=== PATIENT | female | born 1990 ===

== ENCOUNTER 2016-08-07 10:27 | Emergency (ER) | payer MEDICAID ==
[2016-08-07 10:28] VITALS: BMI 34.0
[2016-08-07 10:33] VITALS: TEMP 97.9
[2016-08-07 11:30] VITALS: BP 110/64; PULSE 82; RESP 17; O2SAT 100
--- NOTE | 2016-08-07 13:11 | C.PDOC ---
History Of Present Illness 25 y/o female presents to the ED with complains of rash to top left forehead and bilateral hands, mildly itchy. Pt denies history of same in the past. Denies new exposure to products or environmental allergens. Denies chest pain, SOB, change in vision, throat swelling or any other complaints. Time Seen by Provider: 08/07/16 10:44 Chief Complaint (Nursing): Allergic Reaction History Per: Patient History/Exam Limitations: no limitations Onset/Duration Of Symptoms: Hrs Current Symptoms Are (Timing): Still Present Possible Cause: Unknown Associated Symptoms: Skin Rash, Itching. denies: Swelling, Trouble Swallowing Home/EMS Treatment: None Severity: Mild Past Medical History Reviewed: Historical Data, Nursing Documentation, Vital Signs Vital Signs: Last Vital Signs Temp 97.9 F 08/07/16 11:30 Pulse 82 08/07/16 11:30 Resp 17 08/07/16 11:30 BP 110/64 08/07/16 11:30 Pulse Ox 100 08/07/16 13:14 - Medical History PMH: Anxiety, Migraine - [facility] Procedures INJECT/INFUSE ELECTROLYT (10/08/14) INJECT/INFUSE NEC (10/08/14) Family History: States: Unknown Family Hx - Social History Hx Tobacco Use: No Hx Alcohol Use: No Hx Substance Use: No - Immunization History Hx Tetanus Toxoid Vaccination: No Hx Influenza Vaccination: No Hx Pneumococcal Vaccination: No Review Of Systems Except As Marked, All Systems Reviewed And Found Negative. Constitutional: Negative for: Fever Eyes: Negative for: Vision Change ENT: Negative for: Throat Swelling Cardiovascular: Negative for: Chest Pain Respiratory: Negative for: Shortness of Breath Skin: Positive for: Rash Physical Exam - Physical Exam Appears: Non-toxic, No Acute Distress Skin: Warm, Dry, Rash (intermittent macular papular areas on left forehead above eye and to left hand) Head: Atraumatic, Normacephalic Ear(s): Bilateral: Normal Nose: Normal Oral Mucosa: Moist Throat: Normal, No Erythema Neck: Normal, Normal ROM, Supple Chest: Symmetrical Cardiovascular: Rhythm Regular, No Murmur Respiratory: Normal Breath Sounds, No Rales, No Rhonchi, No Wheezing Extremity: Bilateral: Atraumatic Neurological/Psych: Oriented x3, Normal Speech ED Course And Treatment O2 Sat by Pulse Oximetry: 100 (room air) Pulse Ox Interpretation: Normal Disposition - Disposition Referrals: [facility] Devendra Fierro, [Non-Staff] - Disposition: HOME/ ROUTINE Disposition Time: 10:45 Condition: GOOD Additional Instructions: Thank you for letting us take care of you today. Your provider was Dr. Peguero. You were treated for contact dermatitis. The emergency medical care you received today was directed at your acute symptoms. If you were prescribed any medication, please fill it and take as directed. It may take several days for your symptoms to resolve. Return to the Emergency Department if your symptoms worsen, do not improve, or if you have any other problems. Please contact your doctor or call one of the physicians/clinics you have been referred to that are listed on the Patient Visit Information form that is included in your discharge packet. Bring any paperwork you were given at discharge with you along with any medications you are taking to your follow up visit. Our treatment cannot replace ongoing medical care by a primary care provider (PCP) outside of the emergency department. Thank you for allowing the [facility] team to be part of your care today. Follow up with your doctor in 2-3 days for re-evaluation. Prescriptions: predniSONE [Prednisone] 40 mg PO DAILY #6 tab Instructions: Contact Dermatitis (ED) - Clinical Impression Clinical Impression: Contact dermatitis - Scribe Statement The provider has reviewed the documentation as recorded by the Maxim Gardner Provider Attestation: All medical record entries made by the Maxim were at my direction and personally dictated by me. I have reviewed the chart and agree that the record accurately reflects my personal performance of the history, physical exam, medical decision making, and the department course for this patient. I have also personally directed, reviewed, and agree with the discharge instructions and disposition.
== END 2016-08-07 11:29 | disposition home or self-care (01) ==
LOC: C.ER 10:27
DX: L25.9 Unspecified contact dermatitis, unspecified cause (principal)

== ENCOUNTER 2017-07-24 06:19 | Emergency (ER) | payer MEDICAID ==
[2017-07-24 06:19] VITALS: BMI 34.3
[2017-07-24 06:25] VITALS: BP 106/71; PULSE 91; RESP 22; TEMP 98.7; O2SAT 98
--- NOTE | 2017-07-24 06:33 | C.PDOC ---
History Of Present Illness 26yo female, currently 4 months , presents to ED with complaints of cough, sore throat and a subjective fever for the past 2 days. Patient states the symptoms have been worsening and she feels as if she has "a bad cold." Of note, patient's is in this ER being treated for similar complaints. She denies any abdominal pain, nausea, vomiting, chest pain, shortness of breath, vaginal bleeding or discharge. She has no other medical complaints. PMD: None provided Time Seen by Provider: 07/24/17 06:26 Chief Complaint (Nursing): Fever History Per: Patient History/Exam Limitations: no limitations Onset/Duration Of Symptoms: Days (2) Location Of Pain: Throat Sick Contacts (Context): Family Member(s) Associated Symptoms: Fever (tactile), Sore Throat, Cough. denies: Nausea, Vomiting, Diarrhea Past Medical History Vital Signs: Last Vital Signs Temp 98.7 F 07/24/17 06:24 Pulse 91 H 07/24/17 06:24 Resp 22 07/24/17 06:24 BP 106/71 07/24/17 06:24 Pulse Ox 98 07/24/17 06:34 - Medical History PMH: Anxiety, Migraine Denies: Diabetes, Hepatitis, HIV, HTN, Seizures, Sexually Transmitted Disease Surgical History: No Surg Hx - [facility] Procedures INJECT/INFUSE ELECTROLYT (10/08/14) INJECT/INFUSE NEC (10/08/14) Family History: States: No Known Family Hx, Unknown Family Hx - Social History Hx Tobacco Use: No Hx Alcohol Use: No Hx Substance Use: No - Immunization History Hx Tetanus Toxoid Vaccination: No Hx Influenza Vaccination: No Hx Pneumococcal Vaccination: No Review Of Systems Except As Marked, All Systems Reviewed And Found Negative. Constitutional: Positive for: Fever (tactile) ENT: Positive for: Throat Pain Respiratory: Positive for: Cough. Negative for: Shortness of Breath Gastrointestinal: Negative for: Nausea, Vomiting, Abdominal Pain Genitourinary: Negative for: Vaginal Discharge, Vaginal Bleeding Physical Exam - Physical Exam Appears: Non-toxic, No Acute Distress Skin: Normal Color, Warm, Dry Head: Atraumatic, Normacephalic Eye(s): bilateral: Normal Inspection Ear(s): Bilateral: Normal Nose: Normal Oral Mucosa: Moist Throat: Normal, Erythema (mild), No Exudate Neck: Normal ROM, Supple Chest: Symmetrical, No Tenderness Cardiovascular: Rhythm Regular Respiratory: Normal Breath Sounds, No Rales, No Rhonchi, No Wheezing Extremity: Normal ROM Neurological/Psych: Oriented x3 ED Course And Treatment O2 Sat by Pulse Oximetry: 98 (RA) Pulse Ox Interpretation: Normal Progress Note: Patient given first dose of Zithromax in ER. Instructed to take the rest of antibiotics as prescribed and to complete the entire course. Patient also informed to follow up with PMD in 2-3 days. CXR deferred as patient is currently . Stable for discharge home. Disposition - Disposition Disposition: HOME/ ROUTINE Disposition Time: 06:30 Condition: STABLE Additional Instructions: Follow up with PMD within 1-2 days. Return to ED if feel worse. Prescriptions: Fluticasone Nasal [Flonase] 1 spr NS BID #1 spr Acetaminophen [Tylenol 325mg tab] 2 tab PO Q6 #50 tab Azithromycin [Zithromax] 250 mg PO DAILY #4 tab Instructions: Bacterial Upper Respiratory Infection, Adult (DC) Forms: [employer] ([place]an) - Clinical Impression Clinical Impression: , URI (upper respiratory infection) - PA / PLASTIC JOINT MAKER / Resident Statement MD/DO has reviewed & agrees with the documentation as recorded. - Scribe Statement The provider has reviewed the documentation as recorded by the Scribe (Jazzmine Fraire) Provider Attestation: All medical record entries made by the Scribe were at my direction and personally dictated by me. I have reviewed the chart and agree that the record accurately reflects my personal performance of the history, physical exam, medical decision making, and the department course for this patient. I have also personally directed, reviewed, and agree with the discharge instructions and disposition.
== END 2017-07-24 06:44 | disposition home or self-care (01) ==
LOC: C.ER 06:19
DX: O26.90 Pregnancy related conditions, unspecified, unspecified trimester (principal); J06.9 Acute upper respiratory infection, unspecified; Z3A.00 Weeks of gestation of pregnancy not specified

== ENCOUNTER 2017-09-13 13:45 | Observation (INO) | payer MEDICAID ==
[2017-09-13 13:45] VITALS: BMI 34.3
[2017-09-13] MEDS ORDERED: Sodium Chloride 0.9% 1,000 ML IV ONE ×2 (14:55→16:04)
[2017-09-13] MEDS ORDERED: Sodium Chloride 0.9% 1,000 ML ONE ×2 (15:17→16:24)
[2017-09-13 15:21] LABS: BASO % 0.3 % (0.0-2.0); EOS % 0.5 % (0.0-4.0); HEMOGLOBIN 10.5 g/dL (11.0-16.0); LYMPH # 1.4 K/uL (1.0-4.3); LYMPH % 17.7 % (20.0-40.0); MEAN CELL VOLUME 84.3 fL (81.0-99.0); MEAN CORPUSCULAR HEMOGLOBIN 28.6 pg (27.0-31.0); MEAN CORPUSCULAR HGB CONC 33.9 g/dL (33.0-37.0); MEAN PLATELET VOLUME 7.2 fL (7.2-11.7); MONO # 0.5 K/uL (0.0-0.8); NEUT # 6.1 K/uL (1.8-7.0); NEUT % 75.5 % (50.0-75.0); RBC 3.68 Mil/uL (3.80-5.20); RED CELL DISTRIBUTION WIDTH 14.1 % (11.5-14.5); WHITE BLOOD COUNT 8.1 K/uL (4.8-10.8)
[2017-09-13 15:29] LABS: INR 1.2; PROTHROMBIN TIME 12.9 SECONDS (9.7-12.2)
[2017-09-13 15:42] LABS: HCG,QUALITATIVE URINE POSITIVE (NEGATIVE)
[2017-09-13 15:44] LABS: SQUAMOUS EPITHIAL 5 /hpf (0-5); URINE BILIRUBIN NEGATIVE (NEGATIVE); URINE BLOOD NEGATIVE (NEGATIVE); URINE CLARITY Hazy (Clear); URINE COLOR Yellow (YELLOW); URINE GLUCOSE (UA) NORMAL (Normal); URINE LEUKOCYTE ESTERASE NEG Leu/uL (Negative); URINE PROTEIN NEGATIVE (NEGATIVE)
--- NOTE | 2017-09-13 15:50 | C.PDOC ---
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 As per pt, ' was walking with my friend when fell dizzy and fell down". Pt was able to recall the entire episode. Pt sts, " my friend got me up and I came here". Pt still c/o dizziness, describes as lightheaded. Otherwise, pt denies head injury, , denies severe headache, vertigo, visual changes, focal deficits,m neck pain, CP, SOB, dyspnea, palpitation, diaphoresis , abd, pain, vaginal bleeding, back pain, peripheral edema, denies any complication during the current . Time Seen by Provider: 09/13/17 14:52 Chief Complaint (Nursing): Syncope History Per: Patient Past Medical History Reviewed: Historical Data, Nursing Documentation, Vital Signs Vital Signs: Last Vital Signs Temp 97.4 F L 09/14/17 00:00 Pulse 88 09/14/17 01:00 Resp 20 09/14/17 00:00 BP 111/71 09/14/17 00:00 Pulse Ox 96 09/14/17 00:00 - Medical History PMH: Anxiety, Migraine Denies: Diabetes, Hepatitis, HIV, HTN, Seizures, Sexually Transmitted Disease - [facility] Procedures INJECT/INFUSE ELECTROLYT (10/08/14) INJECT/INFUSE NEC (10/08/14) Family History: States: Unknown Family Hx - Social History Hx Tobacco Use: No Hx Alcohol Use: No Hx Substance Use: No - Immunization History Hx Tetanus Toxoid Vaccination: No Hx Influenza Vaccination: No Hx Pneumococcal Vaccination: No Review Of Systems Except As Marked, All Systems Reviewed And Found Negative. Constitutional: Negative for: Fever, Chills Eyes: Negative for: Vision Change ENT: Negative for: Throat Pain, Throat Swelling Cardiovascular: Negative for: Chest Pain, Palpitations, Edema, Light Headedness Respiratory: Negative for: Cough, Shortness of Breath, Wheezing Gastrointestinal: Negative for: Nausea, Vomiting, Abdominal Pain, Diarrhea Genitourinary: Negative for: Dysuria, Vaginal Bleeding Musculoskeletal: Negative for: Neck Pain, Back Pain Skin: Negative for: Bruising Neurological: Positive for: Altered Mental Status, Dizziness. Negative for: Weakness, Numbness, Headache Physical Exam - Physical Exam Appears: Well, Non-toxic, No Acute Distress Skin: Normal Color, Warm, Dry, No Rash Head: Atraumatic, Normacephalic Eye(s): bilateral: PERRL Ear(s): Bilateral: Normal Nose: No Flaring, No Discharge Oral Mucosa: Moist, No Drooling Tongue: Normal Appearing Lips: Normal Appearing Throat: No Drooling Neck: Normal ROM, Trachea Midline, Supple Cardiovascular: Rhythm Regular, No Murmur, No JVD, Other ((-) carotid bruits B/L ) Respiratory: No Decreased Breath Sounds, No Accessory Muscle Use, No Stridor, No Wheezing Gastrointestinal/Abdominal: No Tenderness, No Guarding, Other (Gravid) Back: No CVA Tenderness Extremity: Normal ROM, No Pedal Edema, No Deformity Neurological/Psych: Oriented x3, Normal Speech, Normal Cognition, Normal Motor, Normal Sensation, Normal Reflexes ED Course And Treatment - Laboratory Results Result Diagrams: 09/13/17 15:14 09/13/17 15:14 Lab Interpretation: No Acute Changes Urine POC: Positive ECG: Interpreted By Me, Viewed By Me ECG Rhythm: Sinus Rhythm Interpretation Of ECG: SR@89/min, NAD, no acute T wave or ST-T changes. O2 Sat by Pulse Oximetry: 99 Pulse Ox Interpretation: Normal Progress Note: FSBS 110. Orthostatic: Supine 109/66, 80, STanding 120/76, 94. Pt remained stable during the ED evaluation. Blood work review, appears normal without acute findings. Troponin - negative. EKG- normal study. Pt is afebrile , hemodynamicaly stable. Non-toxic, tolerate Po well in ED. PulseOx 99% RA. ENT: no acute findings. neck: Supple, (-) JVD, (-) caroti bruits B/L. Lungs: CTA B/L, BS equal B/L. CVS: (+)S1S2, reg, (-) murmur. Abd: Gravid. Back : (- ) CVA tenderness. No peripheral edema. case discussed with OB-on-call and transfer to OB floor arranged for further evaluation/ monitoring and admission as need. Case discussed with md-on-call and admission arrange dto telemetry with consult. Disposition - Disposition Disposition: HOSPITALIZED Disposition Time: 15:49 Condition: STABLE - Clinical Impression Clinical Impression: Syncope, , Dehydration
[2017-09-13 15:54] LABS: ALB/GLOB RATIO 1.1 (1.0-2.1); ALBUMIN 3.4 g/dL (3.5-5.0); ALT/SGPT 15 U/L (9-52); AST/SGOT 17 U/L (14-36); BLOOD UREA NITROGEN 4 mg/dL (7-17); CALCIUM 8.8 mg/dl (8.6-10.4); GFR AFRICAN-AMERICAN > 60; GFR NON-AFRICAN AMERICAN > 60
--- NOTE | 2017-09-13 20:41 | OBHP ---
Datetime: 09/13/2017 20:00 IP Adm Impression: , intrauterine IP Chief Complaint Other: Sent from ER for eval after patient presented with Hx of Syncopal e pisode earlier today IP Admit Plan: Observation/Evaluation Admit Comment, IP Provider: OB CONSULTATION 26 yo female and presently at about 25 weeks Per US at 24 weeks. Unknown LMP. Receives PNC at [facility] but started a couple weeks ago only Denies any complications related to her Breast Puller PNC records available and states that has not had a screening 50 gram glucola test yet No Obstetrical complaints elicited No significant Past Medical or Surgical History Able to comunicate well and denies any [place], BV or any other discomfort. Assessment reassuring, No contractions per monitor Obstetrically, pt in Stable and Satisfactory condition If patient is admitted, will order Heart Tones with Doppler Q shift, per L_D Nursing NST not really indicated at 25 weeks. Will request PNC records from [facility] in AM Advised to increase po water intake and to report any changes in movement, pelvic pain, leak ing of fluid or vaginal bleeding at any time. Thanks for consultation Pelvic Type - PN: Adequate Extremities - PN: Normal Abdomen - PN: Normal Back - PN: Normal Breast - PN: Not Done Lungs - PN: Normal Heart - PN: Normal Thyroid - PN: Normal Neurologic - PN: Normal HEENT - PN: Normal General - PN: Normal IP Fetus A Comments: Tracing reassuring for Gestational Age FHR - Baseline A Provider: 140 Membranes, Provider: Intact Contraction Comments Provider: None Comments, ACOG Physical Exam: Morbidly Obese Female FH c/w 28-30 weeks per size No abdominal pain or tenderness Pt denies any abdominal trauma since she did not fell on the floor Admits to adequate Movement Denies any contractions, leaking of fluid or vaginal bleding Denies smoking, alcohol, street drugs Presently without any dizziness or lighthedness Gestation - Est Wks by US: 25, per patient Vital Signs Provider: Reviewed; Within Normal Limits IP Chief Complaint: evaluation NICHD Variability Prov Fetus A: Moderate 6-25bpm NICHD Accel Fetus A IP Provider: [id number] NICHD Decel Fetus A IP Provider: None Genitourinary Exam: Normal DTRs - PN: Normal
--- NOTE | 2017-09-13 22:04 | CP.PCM.PN ---
Subjective - Date & Time of Evaluation Date of Evaluation: 09/13/17 Time of Evaluation: 21:30 - Subjective Subjective: H&P dictated #[id number] Objective - Vital Signs/Intake and Output Vital Signs (last 24 hours): Temp Pulse Resp BP Pulse Ox 98.5 F 86 16 100/64 97 09/13/17 21:29 09/13/17 21:29 09/13/17 21:29 09/13/17 21:29 09/13/17 21:29 - Labs Labs: 09/13/17 15:14 09/13/17 15:14 PT 12.9 SECONDS (9.7-12.2) H 09/13/17 15:14 INR 1.2 09/13/17 15:14 APTT 31 SECONDS (21-34) 09/13/17 15:14
[2017-09-13] MEDS: Dextrose 5%/0.9% NS 1,000 ML IV SCH (22:45)
[2017-09-14 07:27] LABS: BASO % 0.4 % (0.0-2.0); EOS # 0.1 K/uL (0.0-0.7); EOS % 1.2 % (0.0-4.0); HEMOGLOBIN 9.8 g/dL (11.0-16.0); LYMPH # 1.6 K/uL (1.0-4.3); LYMPH % 23.2 % (20.0-40.0); MEAN CELL VOLUME 84.4 fL (81.0-99.0); MEAN CORPUSCULAR HEMOGLOBIN 29.6 pg (27.0-31.0); MEAN CORPUSCULAR HGB CONC 35.1 g/dL (33.0-37.0); MEAN PLATELET VOLUME 7.4 fL (7.2-11.7); MONO # 0.5 K/uL (0.0-0.8); MONO % 7.3 % (0.0-10.0); NEUT # 4.7 K/uL (1.8-7.0); NEUT % 67.9 % (50.0-75.0); RBC 3.3 Mil/uL (3.80-5.20); RED CELL DISTRIBUTION WIDTH 14.2 % (11.5-14.5)
[2017-09-14] MEDS: Dextrose 5%/0.9% NS 1,000 ML IV SCH (08:20)
--- NOTE | 2017-09-14 08:25 | HP ---
CHIEF COMPLAINT: Dizziness with near syncope versus syncopal episode happened this afternoon. HISTORY OF PRESENT ILLNESS: Ms. Pascual is a 26-year-old female with no significant past medical history other than G8, P5, A1, M1 and 27 weeks' ; came into the ED after the patient has an episode of lightheadedness and syncope while she was walking outside. All the history obtained from the patient. She has been in her usual health until this afternoon while she was walking outside with her friend. She felt very dizzy, lightheaded, and she collapsed to the ground. She claims that her blood pressure was low. Denies any loss of consciousness. She claims that she has been aware of all the surrounding as she quickly regained consciousness. She denied any associated symptoms of headache, dizziness, palpitations, nausea, vomiting, or diaphoresis. Denies any other associated symptoms after that episode. She came to the emergency room for evaluation. In the emergency room, the patient was evaluated by SEMICONDUCTOR WAFERS SAW OPERATOR, underwent ultrasound and fetus was normal, and the patient was cleared by CHIEF STEWARD/STEWARDESS. As the patient was cleared by CHIEF STEWARD/STEWARDESS, the patient is being admitted to medical floor for further evaluation of her dizziness, syncope. In the ED, the patient received multiple fluid boluses. When I examined the patient, she is slightly feeling dizzy but much better than this morning. Denies any headache, dizziness. Denies any chest pain, shortness of breath, or wheezing. Denies any nausea, vomiting, abdominal pain, diarrhea, or constipation but claiming that she is feeling very weak. Denies any urinary complaints. Denies any leg pain or leg cramps. Denies any other neurologic symptoms. PAST MEDICAL HISTORY: Denies any past medical history. PAST SURGICAL HISTORY: Denies any past surgical history. FAMILY HISTORY: Nothing contributory to the present illness. Denies any family history of coronary artery disease. PERSONAL HISTORY: She is single; unemployed; having five children, delivered vaginally. SOCIAL HISTORY: Denies smoking, alcohol or drug abuse. ALLERGIES: NO KNOWN DRUG ALLERGIES. MEDICATIONS: Iron tablets, vitamins. REVIEW OF SYSTEMS: As described in history of present illness. PHYSICAL EXAMINATION: GENERAL: On examination, young female, lying in bed, in no acute distress. VITAL SIGNS: Blood pressure 112/75, pulse 91, respirations 20, temperature 97.8 degrees Fahrenheit, and O2 saturations 97% on room air. HEENT: Pupils equal, round, and reacting to light and accommodation. Extraocular muscles are intact. No icterus. No pallor. No oral thrush. No pharyngeal congestion. NECK: Supple. No JVD. No thyromegaly. CHEST: Moving equally bilaterally on respiration. LUNGS: Bilateral vesicular breath sounds. No wheezing. No rhonchi. CVS: S1 and S2 present, regular. ABDOMEN: Soft, nontender. Bowel sounds present. Uterus distended below the umbilicus. Bowel sounds present. No guarding. INTERNATIONAL LOGISTICS MANAGER: Alert, awake and oriented x3. No focal deficits noted. EXTREMITIES: No edema. Palpable peripheral pulses. LABORATORY DATA: Labs done from the ED, WBC 8.1, hemoglobin 10.5, hematocrit 31, platelets 280. PT 12.9, INR 1.2, and PTT 31. Sodium 138, potassium 3.6, chloride 107, bicarb 22, BUN 4, creatinine 0.4, glucose 100, calcium 8.8, AST 17, ALT 15, alkaline phosphatase 80, cardiac enzymes x1 negative. Albumin 3.4. Beta-hCG 12,280. UA: Specific gravity 1.020, pH 6, urobilinogen 2, otherwise, negative. EKG: Normal sinus rhythm as documented in ED note. ASSESSMENT: A young female who is 26 weeks' admitted for dizziness, status post lightheadedness or near syncopal episode this afternoon, evaluated by CHIEF STEWARD/STEWARDESS, cleared by CHIEF STEWARD/STEWARDESS for discharge. The patient is being admitted to the medical floor for further observation of her syncope. 1. Dizziness. 2. Near syncope versus syncope probably secondary to vasovagal, rule out other causes. 3. Second trimester gestation. PLAN: The patient is being admitted to cardiac telemetry. We will do serial cardiac enzymes, serial EKGs. We will check echocardiogram. We will check carotid Doppler. We will do neuro checks. We will obtain cardiology evaluation with Dr. Sánchez. Continue with iron and tablets. We will add further recommendation as her clinical course progresses. Lennie Cade MD
[2017-09-14 08:43] LABS: ALB/GLOB RATIO 0.9 (1.0-2.1); ALBUMIN 2.7 g/dL (3.5-5.0); ALT/SGPT 15 U/L (9-52); AST/SGOT 15 U/L (14-36); BLOOD UREA NITROGEN 3 mg/dL (7-17); CALCIUM 8.2 mg/dl (8.6-10.4); GFR AFRICAN-AMERICAN > 60; GFR NON-AFRICAN AMERICAN > 60; HDL CHOLESTEROL 43 mg/dL (30-70)
[2017-09-14 08:52] LABS: LDL CHOLESTEROL 107 mg/dL (0-129)
[2017-09-14] MEDS ORDERED: Sodium Chloride 0.9% 250 ML IV ONE (09:23)
--- NOTE | 2017-09-14 09:24 | CP.PCM.PN ---
Subjective - Date & Time of Evaluation Date of Evaluation: 09/14/17 Time of Evaluation: 09:23 - Subjective Subjective: Progress note dictated #[id number] Objective - Vital Signs/Intake and Output Vital Signs (last 24 hours): Temp Pulse Resp BP Pulse Ox 98.0 F 79 20 81/51 L 99 09/14/17 07:00 09/14/17 07:50 09/14/17 07:00 09/14/17 07:00 09/14/17 07:52 Intake and Output: 09/14/17 09/14/17 06:59 18:59 Intake Total 1000 Balance 1000 - Medications Medications: Current Medications Dextrose/Sodium Chloride (Dextrose 5%/0.9% Ns 1000 Ml) 1,000 mls @ 100 mls/hr IV .Q10H AMAYA Last Admin: 09/13/17 22:45 Dose: 100 mls/hr - Labs Labs: 09/14/17 07:12 09/14/17 07:12 PT 12.9 SECONDS (9.7-12.2) H 09/13/17 15:14 INR 1.2 09/13/17 15:14 APTT 31 SECONDS (21-34) 09/13/17 15:14
--- NOTE | 2017-09-14 09:46 | CP.PCM.CON ---
History of Present Illness - History of Present Illness History of Present Illness: Consultation for evaluation of syncope HPI: 26 year old female , 27 weeks had a near syncopal episode while she was walking with her friend. Review of Systems - Review of Systems Systems not reviewed;Unavailable: Acuity of Condition - Constitutional Constitutional: As Per HPI - EENT Eyes: As Per HPI Ears: As Per HPI Nose/Mouth/Throat: As Per HPI - Breasts Breasts: As Per HPI - Cardiovascular Cardiovascular: As Per HPI - Respiratory Respiratory: As Per HPI - Gastrointestinal Gastrointestinal: As Per HPI - Genitourinary Genitourinary: As Per HPI - Reproductive: Female Reproductive:Female: As Per HPI - Menstruation Menstruation: As Per HPI - Musculoskeletal Musculoskeletal: As Per HPI - Integumentary Integumentary: As Per HPI - Neurological Neurological: As Per HPI - Psychiatric Psychiatric: As Per HPI - Endocrine Endocrine: As Per HPI - Hematologic/Lymphatic Hematologic: As Per HPI Past Patient History - Infectious Disease Hx of Infectious Diseases: None - Past Social History Smoking Status: Never Smoked - CARDIAC Hx Hypertension: No - PULMONARY Hx Respiratory Disorders: No - NEUROLOGICAL Hx Migraine: Yes Hx Seizures: No - HEMATOLOGICAL/ONCOLOGICAL Hx Human Immunodeficiency Virus (HIV): No - GENITOURINARY/GYNECOLOGICAL Hx Sexually Transmitted Disorders: No - PSYCHIATRIC Hx Anxiety: Yes Hx Substance Use: No - SURGICAL HISTORY Hx Surgeries: No - ANESTHESIA Hx Anesthesia: No Hx Anesthesia Reactions: No Hx Malignant Hyperthermia: No Meds Allergies/Adverse Reactions: Allergies Allergy/AdvReac Type Severity Reaction Status Date / Time No Known Allergies Allergy Verified 09/13/17 13:55 - Medications Medications: Current Medications Dextrose/Sodium Chloride (Dextrose 5%/0.9% Ns 1000 Ml) 1,000 mls @ 100 mls/hr IV .Q10H AMAYA Last Admin: 09/13/17 22:45 Dose: 100 mls/hr Sodium Chloride (Sodium Chloride 0.9%) 250 mls @ 250 mls/hr IV .Q1H ONE Stop: 09/14/17 10:22 Physical Exam - Constitutional Appears: Well - Head Exam Head Exam: ATRAUMATIC, NORMAL INSPECTION, NORMOCEPHALIC - Eye Exam Eye Exam: EOMI, Normal appearance, PERRL Pupil Exam: NORMAL ACCOMODATION, PERRL - ENT Exam ENT Exam: Mucous Membranes Moist, Normal Exam - Neck Exam Neck exam: Positive for: Normal Inspection - Respiratory Exam Respiratory Exam: Clear to Auscultation Bilateral, NORMAL BREATHING PATTERN - Cardiovascular Exam Cardiovascular Exam: REGULAR RHYTHM - GI/Abdominal Exam GI & Abdominal Exam: Normal Bowel Sounds, Soft. absent: Tenderness - Extremities Exam Extremities exam: Positive for: normal inspection - Back Exam Back exam: NORMAL INSPECTION - Neurological Exam Neurological exam: Alert, CN II-XII Intact, Normal Gait, Oriented x3, Reflexes Normal - Psychiatric Exam Psychiatric exam: Normal Affect, Normal Mood - Skin Skin Exam: Dry, Intact, Normal Color, Warm Results - Vital Signs Recent Vital Signs: Last Vital Signs Temp 98.0 F 09/14/17 07:00 Pulse 79 09/14/17 07:50 Resp 20 09/14/17 07:00 BP 81/51 L 09/14/17 07:00 Pulse Ox 99 09/14/17 07:52 - Labs Result Diagrams: 09/14/17 07:12 09/14/17 07:12 Labs: Laboratory Results - last 24 hr 09/13/17 09/13/17 09/13/17 13:51 15:14 15:14 WBC 8.1 RBC 3.68 L Hgb 10.5 L Hct 31.0 L MCV 84.3 MCH 28.6 MCHC 33.9 RDW 14.1 Plt Count 280 MPV 7.2 Neut % (Auto) 75.5 H Lymph % (Auto) 17.7 L [place] % (Auto) 6.0 Eos % (Auto) 0.5 Baso % (Auto) 0.3 Neut # (Auto) 6.1 Lymph # (Auto) 1.4 [place] # (Auto) 0.5 Eos # (Auto) 0.0 Baso # (Auto) 0.0 PT 12.9 H INR 1.2 APTT 31 Sodium Potassium Chloride Carbon Dioxide Anion Gap BUN Creatinine Est GFR ( Amer) Est GFR (Non-Af Amer) POC Glucose (mg/dL) 100 Random Glucose Calcium Total Bilirubin AST ALT Alkaline Phosphatase Troponin I Total Protein Albumin Globulin Albumin/Globulin Ratio Triglycerides Cholesterol LDL Cholesterol Direct HDL Cholesterol Beta HCG, Quant Urine Color Urine Clarity Urine pH Ur Specific [place] Urine Protein Urine Glucose (UA) Urine Ketones Urine Blood Urine Nitrate Urine Bilirubin Urine Urobilinogen Ur Leukocyte Esterase Urine WBC (Auto) Urine RBC (Auto) Ur Squamous Epith Cells Urine HCG, Qual Blood Type Antibody Screen 09/13/17 09/13/17 09/13/17 15:14 15:14 15:35 WBC RBC Hgb Hct MCV MCH MCHC RDW Plt Count MPV Neut % (Auto) Lymph % (Auto) [place] % (Auto) Eos % (Auto) Baso % (Auto) Neut # (Auto) Lymph # (Auto) [place] # (Auto) Eos # (Auto) Baso # (Auto) PT INR APTT Sodium 138 Potassium 3.6 Chloride 107 Carbon Dioxide 22 Anion Gap 14 BUN 4 L Creatinine 0.4 L Est GFR ( Amer) > 60 Est GFR (Non-Af Amer) > 60 POC Glucose (mg/dL) Random Glucose 82 Calcium 8.8 Total Bilirubin 0.3 AST 17 ALT 15 Alkaline Phosphatase 80 Troponin I Total Protein 6.5 Albumin 3.4 L Globulin 3.1 Albumin/Globulin Ratio 1.1 Triglycerides Cholesterol LDL Cholesterol Direct HDL Cholesterol Beta HCG, Quant 31445.00 Urine Color Yellow Urine Clarity Hazy Urine pH 6.0 Ur Specific [place] 1.020 Urine Protein Negative Urine Glucose (UA) Normal Urine Ketones Trace Urine Blood Negative Urine Nitrate Negative Urine Bilirubin Negative Urine Urobilinogen 2.0 H Ur Leukocyte Esterase Neg Urine WBC (Auto) 3 Urine RBC (Auto) < 1 Ur Squamous Epith Cells 5 Urine HCG, Qual Positive Blood Type A POSITIVE Antibody Screen Negative 09/13/17 09/14/17 09/14/17 19:08 00:43 07:12 WBC 7.0 RBC 3.30 L Hgb 9.8 L Hct 27.9 L MCV 84.4 MCH 29.6 MCHC 35.1 RDW 14.2 Plt Count 244 MPV 7.4 Neut % (Auto) 67.9 Lymph % (Auto) 23.2 [place] % (Auto) 7.3 Eos % (Auto) 1.2 Baso % (Auto) 0.4 Neut # (Auto) 4.7 Lymph # (Auto) 1.6 [place] # (Auto) 0.5 Eos # (Auto) 0.1 Baso # (Auto) 0.0 PT INR APTT Sodium Potassium Chloride Carbon Dioxide Anion Gap BUN Creatinine Est GFR ( Amer) Est GFR (Non-Af Amer) POC Glucose (mg/dL) Random Glucose Calcium Total Bilirubin AST ALT Alkaline Phosphatase Troponin I < 0.0120 < 0.0120 Total Protein Albumin Globulin Albumin/Globulin Ratio Triglycerides Cholesterol LDL Cholesterol Direct HDL Cholesterol Beta HCG, Quant Urine Color Urine Clarity Urine pH Ur Specific [place] Urine Protein Urine Glucose (UA) Urine Ketones Urine Blood Urine Nitrate Urine Bilirubin Urine Urobilinogen Ur Leukocyte Esterase Urine WBC (Auto) Urine RBC (Auto) Ur Squamous Epith Cells Urine HCG, Qual Blood Type Antibody Screen 09/14/17 09/14/17 07:12 07:12 WBC RBC Hgb Hct MCV MCH MCHC RDW Plt Count MPV Neut % (Auto) Lymph % (Auto) [place] % (Auto) Eos % (Auto) Baso % (Auto) Neut # (Auto) Lymph # (Auto) [place] # (Auto) Eos # (Auto) Baso # (Auto) PT INR APTT Sodium 138 Potassium 3.6 Chloride 108 H Carbon Dioxide 20 L Anion Gap 13 BUN 3 L Creatinine 0.4 L Est GFR ( Amer) > 60 Est GFR (Non-Af Amer) > 60 POC Glucose (mg/dL) Random Glucose 84 Calcium 8.2 L Total Bilirubin 0.3 AST 15 ALT 15 Alkaline Phosphatase 64 Troponin I < 0.0120 Total Protein 5.7 L Albumin 2.7 L D Globulin 3.0 Albumin/Globulin Ratio 0.9 L Triglycerides 129 Cholesterol 184 LDL Cholesterol Direct 107 HDL Cholesterol 43 Beta HCG, Quant Urine Color Urine Clarity Urine pH Ur Specific [place] Urine Protein Urine Glucose (UA) Urine Ketones Urine Blood Urine Nitrate Urine Bilirubin Urine Urobilinogen Ur Leukocyte Esterase Urine WBC (Auto) Urine RBC (Auto) Ur Squamous Epith Cells Urine HCG, Qual Blood Type Antibody Screen Assessment & Plan (1) Syncope Assessment and Plan: etiology ? preload dependency echo telemetry Status: Acute (2) Dehydration Status: Acute
[2017-09-14] MEDS ORDERED: Calamine-Zinc Oxide Lotion (120 ml) TOP SCH (12:15)
--- NOTE | 2017-09-14 17:15 | CARD ---
APPROVED REPORT Date of service: 09/14/2017 EXAM: Two-dimensional and M-mode echocardiogram with Doppler and color Doppler. INDICATION Syncope 27 weeks 2D DIMENSIONS IVSd0.7 (0.7-1.1cm)LVDd4.6 (3.9-5.9cm) PWd0.9 (0.7-1.1cm)LVDs3.1 (2.5-4.0cm) FS (%) 32.6 %LVEF (%)61.0 (>50%) M-Mode DIMENSIONS Left Atrium (MM)3.82 (2.5-4.0cm)IVSd0.81 (0.7-1.1cm) Aortic Root2.99 (2.2-3.7cm)LVDd5.06 (4.0-5.6cm) Aortic Cusp Exc.2.18 (1.5-2.0cm)PWd0.68 (0.7-1.1cm) FS (%) 30 %LVDs3.52 (2.0-3.8cm) LVEF (%)57 (>50%) Mitral Valve MV E Kwmmiknn61.8cm/sMV A Zeqqoojx35.5cm/sE/A ratio1.7 TDI E/Lateral E'0.0E/Medial E'0.0 Tricuspid Valve TR Peak [id number]/sTR Peak [id number] LEFT VENTRICLE The left ventricle is normal size. There is normal left ventricular wall thickness. The left ventricular function is normal. The left ventricular ejection fraction is within the normal range. There is normal LV segmental wall motion. The left ventricular diastolic function is normal. RIGHT VENTRICLE The right ventricle is normal size. ATRIA The left atrium size is normal. The right atrium size is normal. AORTIC VALVE The aortic valve is normal in structure. MITRAL VALVE The mitral valve is normal in structure. TRICUSPID VALVE There is mild tricuspid regurgitation. <Conclusion> Normal LV systolic function. Normal chamber size. Mild TR.
--- NOTE | 2017-09-14 17:48 | CARD ---
APPROVED REPORT Date of service: 09/13/2017 EKG Measurement Heart [id number] <Conclusion> Normal sinus rhythm Normal ECG
[2017-09-14] MEDS: Calamine-Zinc Oxide Lotion (120 ml) TOP SCH (21:13)
--- NOTE | 2017-09-15 01:14 | PN ---
DATE: 09/14/2017 SUBJECTIVE: The patient was seen and examined at bedside. The patient is feeling slightly better than yesterday, but still complaining of dizziness upon getting up from bed. Her blood pressure was running low this morning. Given fluid bolus. Denies any other new complaints. All other systems reviewed and was found to be negative. PHYSICAL EXAMINATION: GENERAL: Young female, lying in bed, in no acute distress. VITAL SIGNS: Blood pressure 106/70, pulse 91, respirations 20, temperature 98 degree Fahrenheit, O2 sat is 98% on room air. HEENT: Pupils equal, round, and reacting to light and accommodation. Extraocular muscles intact. No icterus. No pallor. No oral thrush. No pharyngeal congestion. NECK: Supple. No JVD. LUNGS: Bilateral vesicular breath sounds. No wheezing. No rhonchi. CVS: S1 and S2 present and regular. ABDOMEN: Soft. Bowel sounds present. Uterus enlarged up to below the umbilicus. FOCUSER: Alert, awake, and oriented x3. No focal deficits noted. EXTREMITIES: No edema. Palpable peripheral pulses. MEDICATIONS: Include IV fluids, calamine lotion. LABORATORY DATA: From this morning, WBC 7, hemoglobin 9.8, hematocrit 27.9, platelets 244. Sodium 138, potassium 3.6, chloride 108, bicarb 20, BUN 3, creatinine 0.4, glucose 84, calcium 8.2. Total bilirubin 0.3, AST 15, ALT 15, alkaline phosphatase 64. Cardiac enzymes x3 negative. Total protein 5.7, albumin 2.7. Triglycerides 129, cholesterol 184, LDL 107, HDL 43. Urine culture, negative growth. Echocardiogram consistent with normal LV systolic function, normal chamber size, mild TR. Carotid Doppler, pending report. ASSESSMENT AND PLAN: Young female with second trimester gestation, admitted for dizziness, status post near syncopal episode, probably secondary to vasovagal, still hypotensive this morning. Improved her blood pressures after fluid boluses. We will continue with fluid at the current rate. Cardiology consult appreciated. Follow up with carotid Doppler results. If cleared by Cardiology and if hemodynamically stable, we will plan discharging the patient in a.m. Lennie Cade MD [facility] # [id number]
[2017-09-15] MEDS: Dextrose 5%/0.9% NS 1,000 ML IV SCH ×3 (02:50→14:27)
[2017-09-15] MEDS: Calamine-Zinc Oxide Lotion (120 ml) TOP SCH ×5 (04:00→17:13)
[2017-09-15 07:39] VITALS: RESP 20
--- NOTE | 2017-09-15 10:06 | CP.PCM.PN ---
Subjective - Date & Time of Evaluation Date of Evaluation: 09/15/17 Time of Evaluation: 10:06 - Subjective Subjective: Discharge summary dictated #[id number] Objective - Vital Signs/Intake and Output Vital Signs (last 24 hours): Temp Pulse Resp BP Pulse Ox 97.8 F 77 20 100/57 L 97 09/15/17 07:00 09/15/17 07:48 09/15/17 07:00 09/15/17 07:00 09/15/17 07:51 Intake and Output: 09/15/17 09/15/17 06:59 18:59 Intake Total 1200 Balance 1200 - Medications Medications: Current Medications Calamine (Calamine Lotion) 0 ml TOP Q4 AMAYA Last Admin: 09/15/17 04:00 Dose: Not Given Dextrose/Sodium Chloride (Dextrose 5%/0.9% Ns 1000 Ml) 1,000 mls @ 100 mls/hr IV .Q10H AMAYA Last Admin: 09/15/17 06:16 Dose: Not Given - Labs Labs: 09/14/17 07:12 09/14/17 07:12 PT 12.9 SECONDS (9.7-12.2) H 09/13/17 15:14 INR 1.2 09/13/17 15:14 APTT 31 SECONDS (21-34) 09/13/17 15:14
--- NOTE | 2017-09-15 11:07 | VASCLAB ---
Date of service: 09/14/2017 PROCEDURE: HISTORY: Syncope COMPARISON: None available. TECHNIQUE: Grayscale and duplex Doppler evaluation of the cervical carotid and vertebral arteries were performed. The common carotid, carotid bifurcations and cervical Internal Carotid Artery (ICA) and proximal External Carotid Artery (ECA) were evaluated. The vertebral arteries were evaluated for gross patency and flow direction. Report prepared by ROSALINDA Lopez FINDINGS: RIGHT CAROTID ARTERIES: 1. Common Carotid Artery: No significant focal plaque formation of the right common carotid artery. Maximum Peak Systolic velocity: 106 cm/sec: End-diastolic velocity 17 cm/sec. 2. Carotid Bifurcation: plaque formation. Maximum Peak Systolic velocity: 69 cm/sec: End-diastolic velocity 14 cm/sec. 3. Internal Carotid Artery: Plaque description: 3.1. Proximal Segment: Peak systolic velocity 82 cm/sec: End-diastolic velocity 25 cm/sec - % stenosis 0-15% 3.2. Middle Segment: Peak systolic velocity 72 cm/sec: End-diastolic velocity 29 cm/sec - % stenosis 0-15% 3.3. Distal Segment: Peak systolic velocity 78 cm/sec: End-diastolic velocity 45 cm/sec - % stenosis 0-15% 4. External Carotid Artery: No significant focal plaque formation. Peak systolic velocity 68 cm/sec 5. ICA/CCA Ratio: 0.8 LEFT CAROTID ARTERIES: 1. Common Carotid Artery: No significant focal plaque formation of the left common carotid artery. Maximum Peak Systolic velocity: 85 cm/sec: End-diastolic velocity 12 cm/sec. 2. Carotid Bifurcation: plaque formation. Maximum Peak Systolic velocity: 67 cm/sec: End-diastolic velocity 14 cm/sec. 3. Internal Carotid Artery: Plaque description: 3.1. Proximal Segment: Peak systolic velocity 79 cm/sec: End-diastolic velocity 20 cm/sec - % stenosis 0-15% 3.2. Middle Segment: Peak systolic velocity 67 cm/sec: End-diastolic velocity 22 cm/sec - % stenosis 0-15% 3.3. Distal Segment: Peak systolic velocity 59 cm/sec: End-diastolic velocity 19 cm/sec - % stenosis 0-15% 4. External Carotid Artery: No significant focal plaque formation. Peak systolic velocity 69 cm/sec 5. ICA/CCA Ratio: 1.0 VERTEBRAL ARTERIES: 1. Right Vertebral Artery: The right vertebral artery flow direction is antegrade. 2. Left Vertebral Artery: The left vertebral artery flow direction is antegrade. OTHER FINDINGS: 1. Right Brachial Blood pressure: 80 mmHg. 2. Left Brachial Blood pressure: 90 mmHg. IMPRESSION: RIGHT: Duplex scan does not suggest hemodynamically significant stenosis of the right extracranial carotid arteries. LEFT: Duplex scan does not suggest hemodynamically significant stenosis of the left extracranial carotid arteries.
[2017-09-15 11:09] LABS: BASO % 0.4 % (0.0-2.0); EOS # 0.1 K/uL (0.0-0.7); EOS % 1.1 % (0.0-4.0); HEMOGLOBIN 10.7 g/dL (11.0-16.0); LYMPH # 1.3 K/uL (1.0-4.3); LYMPH % 18.1 % (20.0-40.0); MEAN CELL VOLUME 84.6 fL (81.0-99.0); MEAN CORPUSCULAR HEMOGLOBIN 29.4 pg (27.0-31.0); MEAN CORPUSCULAR HGB CONC 34.8 g/dL (33.0-37.0); MEAN PLATELET VOLUME 7.2 fL (7.2-11.7); MONO # 0.4 K/uL (0.0-0.8); MONO % 5.9 % (0.0-10.0); NEUT # 5.4 K/uL (1.8-7.0); NEUT % 74.5 % (50.0-75.0); NRBC % 2.1 % (0.0-2.0); RBC 3.65 Mil/uL (3.80-5.20); RED CELL DISTRIBUTION WIDTH 14.4 % (11.5-14.5); WHITE BLOOD COUNT 7.2 K/uL (4.8-10.8)
[2017-09-15 11:33] LABS: ALBUMIN 3.2 g/dL (3.5-5.0); ALT/SGPT 18 U/L (9-52); AST/SGOT 12 U/L (14-36); BLOOD UREA NITROGEN 3 mg/dL (7-17); CALCIUM 8.5 mg/dl (8.6-10.4); GFR AFRICAN-AMERICAN > 60; GFR NON-AFRICAN AMERICAN > 60
--- NOTE | 2017-09-15 13:44 | CP.PCM.PN ---
Subjective - Date & Time of Evaluation Date of Evaluation: 09/15/17 Time of Evaluation: 13:35 - Subjective Subjective: PGY-[address] Sánchez. Ms Pascual is a 26 year old at 27 weeks who presented on 09/13 with an episode of syncope that occurred during a walk outside. Today she reports feeling much better and is asymptomatic. She reports no feelings of dizziness or lightheadedness. Pt denies any shortness of breath, chest pains, abdominal discomfort, dizziness. Objective - Vital Signs/Intake and Output Vital Signs (last 24 hours): Temp Pulse Resp BP Pulse Ox 97.8 F 79 20 100/57 L 97 09/15/17 07:00 09/15/17 12:00 09/15/17 07:00 09/15/17 07:00 09/15/17 12:00 Intake and Output: 09/15/17 09/15/17 06:59 18:59 Intake Total 1200 Balance 1200 - Medications Medications: Current Medications Calamine (Calamine Lotion) 0 ml TOP Q4 AMAYA Last Admin: 09/15/17 08:37 Dose: Not Given Dextrose/Sodium Chloride (Dextrose 5%/0.9% Ns 1000 Ml) 1,000 mls @ 100 mls/hr IV .Q10H AMAYA Last Admin: 09/15/17 06:16 Dose: Not Given - Labs Labs: 09/15/17 11:01 09/15/17 11:01 PT 12.9 SECONDS (9.7-12.2) H 09/13/17 15:14 INR 1.2 09/13/17 15:14 APTT 31 SECONDS (21-34) 09/13/17 15:14 - Constitutional Appears: Well, No Acute Distress - Head Exam Head Exam: ATRAUMATIC, NORMOCEPHALIC - Eye Exam Eye Exam: EOMI, Normal appearance, PERRL - ENT Exam ENT Exam: Mucous Membranes Moist, Normal Exam - Respiratory Exam Respiratory Exam: Clear to Ausculation Bilateral, NORMAL BREATHING PATTERN - Cardiovascular Exam Cardiovascular Exam: REGULAR RHYTHM - GI/Abdominal Exam Additional comments: Gravid Abdomen - Neurological Exam Neurological Exam: CN II-XII Intact - Skin Skin Exam: Intact, Normal Color, Warm Assessment and Plan (1) Syncope Assessment & Plan: Etiology most likely 2/2 dehydration and reduced blood flow from physiologic changes in EKG: Normal sinus rhythm Carotid Dopplers negative Echo: EF 66%, Mild TR Clinically shows no signs of syncope currently Patient advised to drink plenty of fluids Patient is cleared for discharge from a cardiac standpoint Status: Acute (2) Dehydration Assessment & Plan: Clinically improved Fluids: Dextrose 5%/.9%NS, 100mL/hr BPs 110s/70s-100s/50s Patient advised to maintain oral hydration Status: Acute
[2017-09-15 17:19] VITALS: TEMP 98; O2SAT 99
[2017-09-15 17:31] VITALS: BP 107/66; PULSE 84
--- NOTE | 2017-09-16 12:20 | DS ---
DISCHARGE DIAGNOSES: Dizziness, status post near syncope, dehydration, and 27 weeks gestation. HISTORY OF PRESENT ILLNESS: Ms. Pascual is a 26-year-old female with past medical history significant for G8, , M1 and 27 weeks' admitted with one episode of lightheadedness and near syncope while she was walking outside. The patient was found to be having low blood pressure and the patient is being admitted for further management after the patient is cleared by INSULATION NOZZLEMAN. This morning, the patient is feeling much better. Denies any headache or dizziness. Denies any chest pain, shortness of breath, or wheezing. Denies any nausea, vomiting, abdominal pain, diarrhea, or constipation. Denies any urinary complaints. Denies any leg pain or leg cramps. Denies any other neurologic symptoms. All other symptoms reviewed and were found to be negative. PHYSICAL EXAMINATION: GENERAL: Young female, lying in bed, in no acute distress. VITAL SIGNS: Blood pressure 107/66, pulse 84, respirations 20, temperature 98 degrees Fahrenheit, O2 saturation 99% on room air. HEENT: Pupils equal, round, and reacting to light and accommodation. Extraocular muscles intact. No icterus. No pallor. No oral thrush. No pharyngeal congestion. NECK: Supple. No JVD. LUNGS: Bilateral vesicular breath sounds. No wheezing. No rhonchi. CARDIOVASCULAR: S1 and S2 present, regular. ABDOMEN: Soft and nontender. Bowel sounds present. No guarding. No rigidity. No rebound tenderness noted. Uterus is distended below the umbilicus. RENDERING EQUIPMENT TENDER: Alert, awake, oriented x3. No focal deficits noted. EXTREMITIES: No edema. Palpable peripheral pulses. LABORATORY DATA: Labs from this morning: WBC 7.2, hemoglobin 10.7, hematocrit 30.8, and platelets 267. Sodium 138, potassium 3.8, chloride 108, bicarb 20, BUN 3, creatinine 0.4, glucose 88, and calcium 8.5. Total bilirubin 0.2, AST 12, ALT 18, and alkaline phosphatase 75, total protein 6.4, albumin 3.2, and globulin 3.2. HOSPITAL COURSE: The patient was admitted to the hospital after the patient was cleared by INSULATION NOZZLEMAN, after the patient had a near syncopal episode and dizziness. The patient was found to be having low blood pressures, so received multiple fluid boluses, had all the workup done for syncope. Carotid Doppler is negative. Echocardiogram within normal limits. The patient was evaluated by Cardiology. Cleared for discharge. The patient is also cleared by INSULATION NOZZLEMAN for discharge. The patient is otherwise feeling much better and hemodynamically stable. Blood pressure improved without any dizziness or any other symptoms, and the patient is anxious to be discharged. The patient is discharged. I advised the patient to follow up with PMD, follow up with KEY PUNCH OPERATOR. I advised her to return to ED if any symptoms recur. CONDITION UPON DISCHARGE: The patient is alert, awake, oriented x3, and hemodynamically stable at the time of discharge. DISCHARGE INSTRUCTIONS: Follow up with PMD. Follow up with KEY PUNCH OPERATOR. DISCHARGE DIET: Regular diet and recommended to increase p.o. fluid intake and advised to keep herself rehydrated all the time. Lennie Cade MD
== END 2017-09-15 18:10 | disposition home or self-care (01) ==
LOC: C.EROB 13:45 → C.ER 13:45 → C.5S 16:08 → C.9E 16:08 → EDLOC 16:08 → UNDOADMOB 16:08 → C.4LDOR 17:08 → C.9E 17:08 → C.ER 18:33 → C.4LDOR 19:36 → C.5S 21:55
PROVIDERS: ADMIT Internal Medicine; ATTEND Internal Medicine
DX: O99.412 Diseases of the circulatory system complicating pregnancy, second trimester (principal); O99.282 Endocrine, nutritional and metabolic diseases complicating pregnancy, second trimester; Z3A.27 27 weeks gestation of pregnancy; G43.909 Migraine, unspecified, not intractable, without status migrainosus; I95.9 Hypotension, unspecified; E66.01 Morbid (severe) obesity due to excess calories; E86.0 Dehydration; O99.212 Obesity complicating pregnancy, second trimester
CPT/HCPCS: 36415; 80053; 80061; 81001; 82948; 84484; 84702; 84703; 85025; 85610; 85730; 86850; 86900; 87086; 93005; 93306; 93880; 96360; 99285; G0378; J7030; J7042

== ENCOUNTER 2017-09-27 13:53 | Emergency (ER) | payer MEDICAID ==
[2017-09-27 14:05] VITALS: BMI 43.9
--- NOTE | 2017-09-27 14:21 | C.PDOC ---
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 As per pt, 'I was walking with him when felt dizzy and fell down". Pt was able to recall the entire episode. Pt sts, "he caught me and I came here". Pt still c/o dizziness, describes as lightheaded. Otherwise, pt denies head injury, severe headache, vertigo, visual changes, focal deficits, neck pain, CP, SOB, dyspnea, palpitation, diaphoresis, abd, pain, vaginal bleeding, back pain. Of note, pt was seen in [facility] earlier today to monitor growth of the baby, states everything is "normal." Time Seen by Provider: 09/27/17 14:16 Chief Complaint (Nursing): Syncope History Per: Patient History/Exam Limitations: no limitations Onset/Duration Of Symptoms: Days Current Symptoms Are (Timing): Still Present Past Medical History Reviewed: Historical Data, Nursing Documentation, Vital Signs Vital Signs: Last Vital Signs Temp 97.9 F 09/27/17 15:57 Pulse 88 09/27/17 15:57 Resp 18 09/27/17 15:57 BP 117/68 09/27/17 15:57 Pulse Ox 100 09/27/17 16:00 - Medical History PMH: Anxiety, Migraine - [facility] Procedures INJECT/INFUSE ELECTROLYT (10/08/14) INJECT/INFUSE NEC (10/08/14) Family History: States: No Known Family Hx - Social History Hx Tobacco Use: No Hx Alcohol Use: No Hx Substance Use: No - Immunization History Hx Tetanus Toxoid Vaccination: No Hx Influenza Vaccination: No Hx Pneumococcal Vaccination: No Review Of Systems Constitutional: Negative for: Fever, Chills Cardiovascular: Negative for: Chest Pain, Palpitations Respiratory: Negative for: Shortness of Breath Gastrointestinal: Negative for: Nausea, Vomiting Musculoskeletal: Negative for: Back Pain Skin: Negative for: Rash Neurological: Negative for: Weakness, Numbness, Headache, Dizziness Physical Exam - Physical Exam Appears: Non-toxic, No Acute Distress Skin: Normal Color, Warm, Dry, No Rash Head: Atraumatic, Normacephalic Eye(s): bilateral: Normal Inspection Nose: Normal Oral Mucosa: Moist Lips: Normal Appearing Neck: Normal ROM Chest: Symmetrical Cardiovascular: Rhythm Regular, No Murmur Respiratory: Normal Breath Sounds, No Accessory Muscle Use Gastrointestinal/Abdominal: Soft, No Tenderness, Other (Gravid) Extremity: Normal ROM, No Pedal Edema, No Deformity, No Swelling Neurological/Psych: Oriented x3, Normal Speech ED Course And Treatment - Laboratory Results Result Diagrams: 09/27/17 15:04 09/27/17 15:04 ECG: Interpreted By Me, Viewed By Me ECG Rhythm: Sinus Rhythm ECG Interpretation: No Acute Changes Rate From EC O2 Sat by Pulse Oximetry: 100 (RA) Pulse Ox Interpretation: Normal Medical Decision Making Medical Decision Making: Prior records reviewed: Patient was recently seen in ED on 09/13/17 for syncope and admitted for syncope, dehydration. During hospitalization patient observed for syncope and had cardiology and OB consult. Echo shows EF 66%, Mild TR. Patient clinically improved and discharged on 09/15 Plan: * Bloodwork * IVFs * UA Progress: All labs reviewed. H/H shows mild anemia. Potassium is low, oral potassium ordered. Patient remained afebrile alert and oriented with stable vital signs during ER evaluation. On re-examination, patient is resting comfortably in no acute distress. Patient reports improvement of symptoms. 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 Disposition Counseled Patient/Family Regarding: Diagnosis, Need For Followup - Disposition Disposition: HOME/ ROUTINE Disposition Time: 15:58 Condition: STABLE Instructions: Syncope (Fainting) Forms: [facility] (Ugandan) - POA Present On Arrival: None - Clinical Impression Clinical Impression: Syncope, - Scribe Statement The provider has reviewed the documentation as recorded by the Scribe (Santa Watkins) All medical record entries made by the Scribe were at my direction and personally dictated by me. I have reviewed the chart and agree that the record accurately reflects my personal performance of the history, physical exam, medical decision making, and the department course for this patient. I have also personally directed, reviewed, and agree with the discharge instructions and disposition.
[2017-09-27] MEDS ORDERED: Sodium Chloride 0.9% 1,000 ML ONE (14:53)
[2017-09-27] MEDS: Sodium Chloride 0.9% 1,000 ML IV ONE (14:56)
[2017-09-27 15:13] LABS: SQUAMOUS EPITHIAL 36 /hpf (0-5); URINE BACTERIA RARE (<OCC); URINE BILIRUBIN NEGATIVE (NEGATIVE); URINE BLOOD NEGATIVE (NEGATIVE); URINE CLARITY Hazy (Clear); URINE COLOR Amber (YELLOW); URINE GLUCOSE (UA) NORMAL (Normal); URINE LEUKOCYTE ESTERASE 2+ Leu/uL (Negative); URINE PROTEIN 1+ mg/dL (NEGATIVE)
[2017-09-27 15:18] LABS: BASO % 0.3 % (0.0-2.0); EOS # 0.1 K/uL (0.0-0.7); EOS % 0.9 % (0.0-4.0); HEMOGLOBIN 9.9 g/dL (11.0-16.0); LYMPH # 1.4 K/uL (1.0-4.3); LYMPH % 22.2 % (20.0-40.0); MEAN CELL VOLUME 82.7 fL (81.0-99.0); MEAN CORPUSCULAR HEMOGLOBIN 28.8 pg (27.0-31.0); MEAN CORPUSCULAR HGB CONC 34.9 g/dL (33.0-37.0); MEAN PLATELET VOLUME 7.4 fL (7.2-11.7); MONO # 0.4 K/uL (0.0-0.8); MONO % 6.8 % (0.0-10.0); NEUT # 4.4 K/uL (1.8-7.0); NEUT % 69.8 % (50.0-75.0); RBC 3.45 Mil/uL (3.80-5.20); RED CELL DISTRIBUTION WIDTH 14.3 % (11.5-14.5); WHITE BLOOD COUNT 6.4 K/uL (4.8-10.8)
[2017-09-27 15:22] LABS: ALBUMIN 3.1 g/dL (3.5-5.0); ALT/SGPT 19 U/L (9-52); AST/SGOT 14 U/L (14-36); BLOOD UREA NITROGEN 3 mg/dL (7-17); CALCIUM 8.4 mg/dl (8.6-10.4); GFR AFRICAN-AMERICAN > 60; GFR NON-AFRICAN AMERICAN > 60
[2017-09-27] MEDS: Potassium Chloride 20 mEq ER Tab PO STA (15:45)
[2017-09-27] MEDS ORDERED: Potassium Chloride 20 mEq ER Tab PO ONE (15:45)
[2017-09-27 15:58] VITALS: TEMP 97.9
--- NOTE | 2017-09-27 16:52 | OBHP ---
Datetime: 09/27/2017 16:44 IP Adm Impression: , intrauterine IP Admit Plan: Discharge home Admit Comment, IP Provider: 26 yo female @ 27 wks for syncopal epsides, second episode this prgancny. pt revuated 09/13 admissed by cardiolgy normal echo adn evluated. pt reprots today was walk ing wither her husbnad and felt dizzy and passed out, denies any head trauma, no defectation, no urin blayne incontinece. pt denies any abodminal trama, di dnot lose conscoiuness. pt deies any lof, vb, ctx, +Fm. Pt denies any fevers, chills, cp, sob, lightheadness, headache, blurry vsion, numbnes ro dissy ness. 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 FHX: non contribtory MEDS: iron, vitmain NKDA SHX: ngetiave etoh/tobacc/drugs @ 2 7wks with syncopal epside cleared by ER -NST -dc home -f/u OBGYN -precauitng given -obstertrically cleared -f/u o/p with pmd, cardiogly, adivsed can consdier neurology Pelvic Type - PN: Adequate Extremities - PN: Normal Abdomen - PN: Normal Back - PN: Normal Breast - PN: Not Done Lungs - PN: Normal Heart - PN: Normal Thyroid - PN: Not Done Neurologic - PN: Normal HEENT - PN: Normal General - PN: Normal FHR - Baseline A Provider: 125 Membranes, Provider: Intact Contraction Comments Provider: none Gestation - Est Wks by US: 27.0 EGA AdmitDate IP: 27.0 Vital Signs Provider: Reviewed; Within Normal Limits IP Chief Complaint: Other NICHD Variability Prov Fetus A: Moderate 6-25bpm FHR Category Provider Fetus A: Category I NICHD Decel Fetus A IP Provider: None Dilatation, Provider: 0 Genitourinary Exam: Normal DTRs - PN: Normal
[2017-09-27 22:09] VITALS: BP 104/75; PULSE 80; RESP 20; O2SAT 99
--- NOTE | 2017-09-28 14:21 | CARD ---
APPROVED REPORT Date of service: 09/27/2017 EKG Measurement Heart [id number] <Conclusion> Normal sinus rhythm Normal ECG
== END 2017-09-27 16:08 | disposition home or self-care (01) ==
LOC: C.EROB 13:53 → C.ER 13:53 → C.EROB 16:08
DX: O26.892 Other specified pregnancy related conditions, second trimester (principal); R55 Syncope and collapse; Z3A.27 27 weeks gestation of pregnancy
CPT/HCPCS: 80053; 81001; 84702; 85025; 93005; 96360; 99285; J7030

== ENCOUNTER 2017-11-25 11:57 | Inpatient (IN) | payer MEDICAID ==
[2017-11-25 12:33] VITALS: BMI 43.4
--- NOTE | 2017-11-25 12:33 | OBHP ---
Datetime: 11/25/2017 12:27 IP Adm Impression: Term, intrauterine IP Chief Complaint Other: cramping/diarrhea/vomiting Admit Comment, IP Provider: at 39+weels came with c/o cramping with diarrhea and vomiting,no c txs,vb , lof+fm. obhx 5 x ph de me pnv all nkda psh de soch de ve 2-3/50/-3 a/p at 39+weks in eaely labor/vomiting ivf cont julian and efm will rexamine Pelvic Type - PN: Adequate Extremities - PN: Normal Abdomen - PN: Normal Back - PN: Normal Breast - PN: Normal Lungs - PN: Normal Heart - PN: Normal Thyroid - PN: Normal Neurologic - PN: Normal HEENT - PN: Normal General - PN: Normal FHR - Baseline A Provider: 140 Contraction Comments Provider: occ Vital Signs Provider: Reviewed; Within Normal Limits NICHD Variability Prov Fetus A: Moderate 6-25bpm NICHD Accel Fetus A IP Provider: 15X15 FHR Category Provider Fetus A: Category I Dilatation, Provider: 2-3 Effacement, Provider: 70 Station, Provider: -2 Genitourinary Exam: Normal DTRs - PN: Normal Datetime: 11/04/2017 16:32 EGA AdmitDate IP: 35.5
[2017-11-25] MEDS: Lactated Ringer's 1,000 ML IV SCH ×3 (12:34→17:30)
[2017-11-25] MEDS ORDERED: Oxytocin 30 UNIT 30 UNITS/500 ML BAG IV ONE ×2 (13:15→14:44)
--- NOTE | 2017-11-25 13:19 | OBADHP ---
Datetime: 11/25/2017 12:27 IP Chief Complaint Other: cramping/diarrhea/vomiting Admit Comment, IP Provider: at 39+weels came with c/o cramping with diarrhea and vomiting,no c txs,vb , lof+fm. obhx 5 x ph de me pnv all nkda psh de soch de ve 2-3/50/-3 a/p at 39+weks in eaely labor/vomiting ivf cont julian and efm will rexamine pt c/o pain. plan admit to l_d npo/ivf labs pitocin anticipate Pelvic Type - PN: Adequate Extremities - PN: Normal Abdomen - PN: Normal Back - PN: Normal Breast - PN: Normal Lungs - PN: Normal Heart - PN: Normal Thyroid - PN: Normal Neurologic - PN: Normal HEENT - PN: Normal General - PN: Normal FHR - Baseline A Provider: 140 Contraction Comments Provider: occ IP Hx Assessment: The History has been Reviewed and is Current Vital Signs Provider: Reviewed; Within Normal Limits NICHD Variability Prov Fetus A: Moderate 6-25bpm NICHD Accel Fetus A IP Provider: 15X15 FHR Category Provider Fetus A: Category I Dilatation, Provider: 2-3 Effacement, Provider: 70 Station, Provider: -2 Genitourinary Exam: Normal DTRs - PN: Normal IP Adm Impression: Term, intrauterine IP Admit Plan: Admit to unit; Initiate labor induction protocol Datetime: 11/04/2017 16:32 Presentation-Admit: Vertex Comments, ACOG Physical Exam: Abdomen: Obese. Gravid. Soft. Fundal height 36 cm Extremities: +2 pitting edema in bilateral lower extremities Gestation - Est Wks by US: 35w 6d NICHD Decel Fetus A IP Provider: None EGA AdmitDate IP: 35.5
[2017-11-25 13:55] LABS: BASO % 0.2 % (0.0-2.0); EOS % 0.3 % (0.0-4.0); HEMOGLOBIN 10.4 g/dL (11.0-16.0); LYMPH # 1.3 K/uL (1.0-4.3); LYMPH % 16.4 % (20.0-40.0); MEAN CELL VOLUME 81.4 fL (81.0-99.0); MEAN CORPUSCULAR HEMOGLOBIN 27.2 pg (27.0-31.0); MEAN CORPUSCULAR HGB CONC 33.5 g/dL (33.0-37.0); MEAN PLATELET VOLUME 7.3 fL (7.2-11.7); MONO # 0.4 K/uL (0.0-0.8); MONO % 4.8 % (0.0-10.0); NEUT % 78.3 % (50.0-75.0); RBC 3.81 Mil/uL (3.80-5.20); RED CELL DISTRIBUTION WIDTH 16.2 % (11.5-14.5); WHITE BLOOD COUNT 7.7 K/uL (4.8-10.8)
[2017-11-25 14:07] LABS: ALBUMIN 3.4 g/dL (3.5-5.0); ALT/SGPT 12 U/L (9-52); AST/SGOT 16 U/L (14-36); BLOOD UREA NITROGEN 3 mg/dL (7-17); GFR NON-AFRICAN AMERICAN > 60
[2017-11-25] MEDS ORDERED: Bupivacaine HCl/FentaNYL Cit 100 ML EPI ONE ×2 (14:28→15:13)
[2017-11-25] MEDS ORDERED: Penicillin G 5 Million Unit Vial IVPB ONE (14:45)
[2017-11-25] MEDS ORDERED: Penicillin G Potassium 5 MU in Dextrose 5% In Water 50 ML IV ONE (15:49)
[2017-11-25 17:24] LABS: BARBITURATES, UR NEGATIVE (NEGATIVE); BENZODIAZEPINES, UR NEGATIVE (NEGATIVE); OPIATES, UR NEGATIVE (NEGATIVE); PHENCYCLIDINE, UR NEGATIVE (NEGATIVE)
[2017-11-25] MEDS: Penicillin G Potassium 2.5 MU in Dextrose 5% In Water 50 ML IV SCH ×2 (18:30→22:31)
[2017-11-25] MEDS ORDERED: Penicillin G Potassium 2.5 MU in Dextrose 5% In Water 50 ML IV SCH (20:00)
--- NOTE | 2017-11-25 20:26 | OBPN ---
Datetime: 11/25/2017 20:23 IP Procedures: Sterile Vag Exam FHR - Baseline A Provider: 140 IP Progress Note Comment: pt was examined at bed side ve /-3 cont piocin anticipate cont bhavin NICHD Accel Fetus A IP Provider: 15X15 FHR Category Provider Fetus A: Category I NICHD Variability Prov Fetus A: Moderate 6-25bpm Dilatation, Provider: 4 Effacement, Provider: 70 Station, Provider: -3 Datetime: 11/25/2017 12:27 Contraction Comments Provider: occ Vital Signs Provider: Reviewed; Within Normal Limits Datetime: 11/04/2017 16:32 Gestation - Est Wks by US: 35w 6d Presentation-Admit: Vertex NICHD Decel Fetus A IP Provider: None Datetime: 09/27/2017 16:44 Membranes, Provider: Intact Datetime: 09/14/2017 15:54 IP Progress Impression: Reassuring heart rate Datetime: 09/13/2017 20:00 IP Fetus A Comments: Tracing reassuring for Gestational Age
[2017-11-26] MEDS ORDERED: Bupivacaine HCl/FentaNYL Cit 100 ML EPI ONE ×2 (00:20→06:22)
[2017-11-26] MEDS: Penicillin G Potassium 2.5 MU in Dextrose 5% In Water 50 ML IV SCH ×2 (02:21→06:18)
--- NOTE | 2017-11-26 09:22 | OBPN ---
Datetime: 11/26/2017 09:04 IP Progress Impression: Normal progression of labor IP Informed Consent Obtain: Vaginal Delivery IP Procedures: Sterile Vag Exam IP Progress Plan: Continue present management Membranes, Provider: Ruptured Contraction Comments Provider: 2-3 mins FHR - Baseline A Provider: 145 IP Progress Note Comment: Pt a gran multiparous female with 5 's, 1 miscarriage and 1 TOP. G8. Pt complaining of pain and on a continuous epidural. Anesthesia notified SVE 9/100/0 station Suspect around 9 lbs baby + early deccels noted Hope for a prompt delivery NICHD Accel Fetus A IP Provider: 10X10 FHR Category Provider Fetus A: Category I NICHD Variability Prov Fetus A: Moderate 6-25bpm Dilatation, Provider: 9 Effacement, Provider: 100 Station, Provider: 0 NICHD Decel Fetus A IP Provider: Early
[2017-11-26] MEDS ORDERED: Oxycodone/Acetaminophen 5/325 mg Tab ONE ×2 (11:17→16:05)
[2017-11-26] MEDS ORDERED: Oxycodone/Acetaminophen 5/325 mg Tab PO PRN (11:21)
[2017-11-26] MEDS: Oxycodone/Acetaminophen 5/325 mg Tab PO PRN ×3 (11:39→21:27)
--- NOTE | 2017-11-26 11:42 | OBDS ---
DELIVERY PERSONNEL Delivery Doctor: Dr Maradiaga MATERNAL INFORMATION Delivery Anesthesia: Epidural Medications in Delivery: oxytocin Estimated Blood Loss (ml): 200 Placenta Cultured: Yes Maternal Complications: None Provider Comments: of viable male from FLOYD position and over an intact perineum. 9 _9, BW 7lbs, 7oz. LABOR SUMMARY EDC: 12/03/2017 00:00 No. Babies in Womb: 1 LABOR INFORMATION Reason for Induction: Not Applicable Onset of Labor: 11/25/2017 13:00 Complete Dilatation: 11/26/2017 10:00 Oxytocin: Augmentation Group B Beta Strep: Positive Antibiotics # of Doses: 4 Steroids Given: None Reason Steroids Not Administered: Not Applicable MEMBRANES Membranes Rupture Method: Artificial Rupture of Membranes: 11/26/2017 00:05 Length of Rupture (hrs): 10.10 Amniotic Fluid Color: Light Meconium Amniotic Fluid Amount: Moderate Amniotic Fluid Odor: None STAGES OF LABOR Stage 1 hrs: 21 Stage 1 min: 0 Stage 2 hrs: 0 Stage 2 min: 11 Stage 3 hrs: 0 Stage 3 min: 4 Total Time in Labor hrs: 21 Total Time in Labor min: 15 VAGINAL DELIVERY Episiotomy: None Laceration Extension: N/A Laceration Type: None Other Laceration: none Laceration Repair: Not Applicable Initial Vag Sponge Count: 10 Final Vag Sponge Count: 10 Sponge Count Correct: Yes Sharps Count Correct: N/A BABY A INFORMATION Infant Delivery Date/Time: 11/26/2017 10:11 Method of Delivery: Vaginal Born in Route : No : N/A Forceps: N/A Vacuum Extraction: N/A Shoulder Dystocia : No ASSISTED DELIVERY BABY A Vacuum/Forceps Comment: none SHOULDER DYSTOCIA BABY A Delivery of Head: 11/26/2017 10:11 Infant Delivery Date/Time: 11/26/2017 10:11 Time Head to Delivery : 0.0 Shoulder Dystocia Comments: n/a PRESENTATION/POSITION BABY A Presentation: Cephalic Cephalic Presentation: Vertex Vertex Position: Left Occipital Anterior Breech Presentation: N/A PLACENTA INFORMATION BABY A Placenta Delivery Time : 11/26/2017 10:15 Placenta Method of Delivery: Spontaneous Placenta Status: Delivered SCORES BABY A Heart Rate 1 min: >100 bpm Resp Effort 1 min: Good Cry Reflex Irritability 1 min: Cough or Sneeze or Pulls Away Muscle Tone 1 min: Active Motion Color 1 min: Body [place], Extremities Blue SCORE 1 MIN: 9 Heart Rate 5 min: >100 bpm Resp Effort 5 min: Good Cry Reflex Irritability 5 min: Cough or Sneeze or Pulls Away Muscle Tone 5 min: Active Motion Color 5 min: Body [place], Extremities Blue SCORE 5 MIN: 9 INFANT INFORMATION BABY A Gestational Age at Delivery: 39.0 Gestational Status: Term Infant Outcome : Liveborn Infant Condition : Stable Sex: Male IDENTIFICATION/MEDS BABY A ID Band Number: [id number] ID Band Location: Left Leg; Left Arm Sensor Applied: Yes Sensor Number: [id number] Sensor Location : Cord Clamp WEIGHT/LENGTH BABY A Infant Birthweight (gms): 3370 Weight (lb): 7 Infant Weight (oz): 7 Infant Length Inches: 19.00 Length cms: 48.3 CORD INFORMATION BABY A No. Cord Vessels: 3 Nuchal Cord : N/A Nuchal Cord Other: none Suction: Mouth
[2017-11-26 16:09] LABS: URINE BACTERIA OCC (<OCC); URINE BILIRUBIN NEGATIVE (NEGATIVE); URINE CLARITY Hazy (Clear); URINE COLOR Red (YELLOW); URINE GLUCOSE (UA) NORMAL (Normal); URINE LEUKOCYTE ESTERASE TRACE Leu/uL (Negative); URINE PROTEIN 2+ mg/dL (NEGATIVE); URINE UROBILINOGEN NORMAL mg/dL (0.2-1.0)
[2017-11-26 16:13] LABS: URINE BLOOD 3+ (NEGATIVE)
[2017-11-26 16:29] LABS: BARBITURATES, UR NEGATIVE (NEGATIVE); BENZODIAZEPINES, UR NEGATIVE (NEGATIVE); OPIATES, UR NEGATIVE (NEGATIVE); PHENCYCLIDINE, UR NEGATIVE (NEGATIVE)
[2017-11-27] MEDS: Oxycodone/Acetaminophen 5/325 mg Tab PO PRN ×3 (01:36→19:13)
[2017-11-27 08:43] LABS: BASO % 0.5 % (0.0-2.0); EOS # 0.1 K/uL (0.0-0.7); EOS % 1.4 % (0.0-4.0); HEMOGLOBIN 9.3 g/dL (11.0-16.0); LYMPH # 2.3 K/uL (1.0-4.3); LYMPH % 23.4 % (20.0-40.0); MEAN CELL VOLUME 81.2 fL (81.0-99.0); MEAN CORPUSCULAR HEMOGLOBIN 27.5 pg (27.0-31.0); MEAN CORPUSCULAR HGB CONC 33.8 g/dL (33.0-37.0); MEAN PLATELET VOLUME 7.3 fL (7.2-11.7); MONO # 0.5 K/uL (0.0-0.8); MONO % 4.9 % (0.0-10.0); NEUT # 6.7 K/uL (1.8-7.0); NEUT % 69.8 % (50.0-75.0); RBC 3.38 Mil/uL (3.80-5.20); RED CELL DISTRIBUTION WIDTH 16.1 % (11.5-14.5); WHITE BLOOD COUNT 9.7 K/uL (4.8-10.8)
[2017-11-27] MEDS: Multiple Vitamins Tab PO SCH (10:54)
--- NOTE | 2017-11-27 12:26 | OBPPN ---
Datetime: 11/27/2017 12:06 PP Pain Prov: Abnormal PP Pain Prov comment: Complains of uterine cramping pain not relieved with Percocet an PP Breasts Prov: Not Done PP Heart Prov: Normal PP Lungs Prov: Normal PP Abdomen/Uterus Prov: Normal PP Lochia Prov: Normal PP Vulva/Perineum Prov: Normal PP CVA Tenderness Prov: Normal PP Extremities Prov: Normal PP C/S Incision Prov: Not Applicable PP Progress Prov: Normal PP Comments Phys Exam Prov: Fundus firm, below umbilicus and non-tender on palpation but c/o's of se liliana cramping PP Impression Prov: Normal progression PP Plan Prov: Continue present management PP Progress Note Prov: PPD # 1 S/P Grand Multiparous female with significantly poor pain tolerance Requesting Percocet continuously and refusing Motrin Advised to take Motrin also to perhaps help with the cramping PP H_H 9.3/27.4 and started on Feosol Counseled to increase po water intake and ambulation UDS ordered Hope to D/C home in AM IP PP Procedures: None Vital Signs Provider PP: Reviewed; Within Normal Limits
[2017-11-27 16:19] LABS: BARBITURATES, UR NEGATIVE (NEGATIVE); BENZODIAZEPINES, UR NEGATIVE (NEGATIVE); PHENCYCLIDINE, UR NEGATIVE (NEGATIVE)
[2017-11-27 16:33] LABS: OPIATES, UR POSITIVE (NEGATIVE)
[2017-11-28] MEDS: Oxycodone/Acetaminophen 5/325 mg Tab PO PRN ×4 (00:04→13:01)
[2017-11-28 08:10] VITALS: RESP 18
[2017-11-28] MEDS ORDERED: Measles, Mumps, and Rubella 0.5 ML VIAL SC ONE (09:06)
[2017-11-28] MEDS ORDERED: MedroxyPROGESTERone Depo 150 mg/mL inj IM ONE (09:06)
[2017-11-28] MEDS: Multiple Vitamins Tab PO SCH (10:12)
--- NOTE | 2017-11-28 20:42 | OBDCSUM ---
Datetime: 11/28/2017 15:47 Discharged to, Provider: Home Follow up at, Provider: [facility] Disch Instr Activity: Normal activity Disch Instr Diet: Regular Discharge Diagnosis, Provider: Term Delivered Discharge Time: 11/28/2017 15:48 Follow up in weeks, Provider: in 6 weeks Disch Referrals: None Contraception discussed, Prov: Yes Disch Activity Restrictions: No exercising; No lifting; No sexual activity; Nothing in vagina - Inte rcourse, tampons, douche Discharge Diagnosis Prov Other: Grandmultiparity Rubella non immune Chronic anemia Obesity Initiation of contraception Contraception after Delivery: Depo-Provera Datetime: 11/04/2017 18:27 Disch Instr Activity: Normal activity Follow up in weeks, Provider: in 6 weeks Disch Activity Restrictions: No exercising; No lifting; No sexual activity; Nothing in vagina - Inte rcourse, tampons, douche
--- NOTE | 2017-11-28 20:47 | OBPPN ---
Datetime: 11/28/2017 20:25 PP Pain Prov: Abnormal PP Nausea Prov: Denies PP Flatus Prov: Yes PP BM Prov: No PP Breasts Prov: Normal PP Heart Prov: Normal PP Lungs Prov: Normal PP Abdomen/Uterus Prov: Normal PP Lochia Prov: Normal PP Vulva/Perineum Prov: Normal PP CVA Tenderness Prov: Normal PP Extremities Prov: Normal PP C/S Incision Prov: Not Applicable PP Progress Prov: Normal PP Comments Phys Exam Prov: Breasts: pendulous, symmetric; no cracked nipples Abdomen: Obewse. Soft. non distended. Fundus firm, mobile, minimally tender (lower), 2 FB below um bilicus. Extremities: no calf tenderness All other systems reviewed and are negative PP Impression Prov: Normal progression PP Plan Prov: Discharge PP Progress Note Prov: Patient seen over an extended period of time, between approximately 0925 to 1 100 hours. Patient c/o "soaking sanitary napkins every 20 minutes since delivery", and passing large clots. Also C/O lower abdominal pain, 8.10; relieved by percocet. Breast- and bottlefeeding. Not ambu lating much; only to bathroom. Denies nausea, vomiting, headaches, dizziness, lightheadedness, chest pain or palpitaitions. Denies nausea and vomiting. Requesting depoProivera for contraception at noris e of discharge. P.E.: as above. Obese, in NAD. Awake, alert, oriented to time, person and place. Pleasant and co operative. FOB present - H/H decreased from 10.4/31 -> 9.3/27.4; Rh(+). UDS x 3 negative except on 11/27, (+) opiates. Chandrika ann non immune Assessment: 27 y.o. [id number], S/P . Pain of afterpains are wnl; this was explained to patient. Fro m approximately 0915 hours to 1100 hours, initially patient appeared to not comprehend the request to change her sanitary napkin so that I and her nurse can assess her bleeding. Patient finally did so; and although she did not ambulate in the hallway as requested, after more 1 hour, sanitary napkin was noted for mild lochia rubra. No significant clots were noted. It was explained to patient, passage o f clots is also wnl for a woman of her high order of completed pregnancies. Chronic anemia - stable. Patient encouraged to eat iron-rich foods, and to supplement with iron. matrix worker note read;ins tructions re: appreciated. Patient is clinically stable for discharge home. Rubella non immu ne for vacciine. For DepoProvera for contraception Plan: 1) MMR SC x 1 2) DMPA 150 mg IM x 1 3) Discharge home 4) See full discharge instructions Vital Signs Provider PP: Reviewed; Within Normal Limits
[2017-11-28 22:11] VITALS: BP 93/62; PULSE 66; TEMP 97; O2SAT 99
== END 2017-11-28 16:58 | disposition home or self-care (01) | DRG 373 ==
LOC: C.EROB 11:57 → C.4D 13:15 → C.4M 11-26 19:09
PROVIDERS: ADMIT Obstetrics & Gynecology; ATTEND Obstetrics & Gynecology
PROC: 10E0XZZ Delivery of Products of Conception, External Approach (ICD-10-PCS; principal; 2017-11-26)
DX: O99.02 Anemia complicating childbirth (principal); O99.89 Other specified diseases and conditions complicating pregnancy, childbirth and the puerperium; O99.214 Obesity complicating childbirth; R19.7 Diarrhea, unspecified; D64.9 Anemia, unspecified; Z3A.39 39 weeks gestation of pregnancy; Z37.0 Single live birth